=== PATIENT | female | born 1980 | race Caucasian/White ===

== ENCOUNTER 2017-03-03 21:24 | Emergency (ER) | payer BC ==
[2017-03-03 21:46] VITALS: BP 125/93
[2017-03-03] MEDS ORDERED: Diphtheria,Pertussis(Acell),Tetanus Vaccine 0.5 ML SDV inactive IM ONE (22:14)
[2017-03-03] MEDS ORDERED: Lidocaine/EPINEPHrine/Tetracaine Soln 1 ML TOP STA (22:35)
[2017-03-03] MEDS ORDERED: Lidocaine/EPINEPHrine/Tetracaine Soln 1 ML TOP ONE (23:07)
[2017-03-03] MEDS ORDERED: Ibuprofen 600 MG Tab PO ONE (23:51)
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
== END 2017-03-04 | disposition home or self-care (01) ==
LOC: JD.ED 21:24
DX: S01.81XA Laceration without foreign body of other part of head, initial encounter (principal); S60.811A Abrasion of right wrist, initial encounter; S80.211A Abrasion, right knee, initial encounter; S80.212A Abrasion, left knee, initial encounter; S60.512A Abrasion of left hand, initial encounter; F41.9 Anxiety disorder, unspecified; F32.9 Major depressive disorder, single episode, unspecified; M19.90 Unspecified osteoarthritis, unspecified site; F17.210 Nicotine dependence, cigarettes, uncomplicated; W01.198A Fall on same level from slipping, tripping and stumbling with subsequent striking against other object, initial encounter
CPT/HCPCS: 12011; 90471; 99283; A9270; 90715; 99282-25

== ENCOUNTER 2020-10-17 14:00 | Emergency (ER) | payer BC, MEDICAID ==
[2020-10-17] MEDS ORDERED: Sodium Chloride 0.9% 1,000 ML IV ONE (14:44)
[2020-10-17] MEDS ORDERED: Ondansetron 4 MG/2 ML SDV IVPUSH ONE (14:44)
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
[2020-10-17 16:44] VITALS: BP 129/95; PULSE 108
== END 2020-10-17 16:47 | disposition home or self-care (01) ==
LOC: JD.ED 14:00
DX: K22.6 Gastro-esophageal laceration-hemorrhage syndrome (principal); R11.2 Nausea with vomiting, unspecified; F41.9 Anxiety disorder, unspecified; F17.210 Nicotine dependence, cigarettes, uncomplicated; Z79.899 Other long term (current) drug therapy
CPT/HCPCS: 36415; 80053; 83735; 85007; 85027; 96374; 99284; J2405; J7030